=== PATIENT | female | born 1955 | race Caucasian/White ===

== ENCOUNTER 2019-10-19 09:29 | Outpatient (CLI) | payer OTHER, SELFPAY ==
--- NOTE | ~2019-10-19 | MM_ITS ---
EXAMINATION: MM screening rosa [facility]ela BI w aron HISTORY: Screening mammogram TECHNIQUE: Craniocaudal and mediolateral oblique 3-D tomosynthesis images were obtained and synthetic 2-D images were generated. CAD analysis was submitted and interpreted. COMPARISON: 10/06/2018 left diagnostic mammogram and limited left breast ultrasound 09/30/2018 bilateral digital screening mammogram 08/01/2017 diagnostic left mammogram 07/22/2017, 06/22/2016 bilateral digital screening mammogram examinations BREAST PARENCHYMAL COMPOSITION: There are scattered areas of fibroglandular density. FINDINGS: There is no evidence of suspicious mass, calcification, or architectural distortion to sugg est malignancy in either breast. There has been no suspicious interval change. IMPRESSION: 1. No mammographic evidence of malignancy. 2. Recommend routine screening mammography in one year. BI-RADS Category 1: Negative Reviewed, dictated and finalized at location A.
== END 2019-10-19 09:30 | disposition home or self-care (01) ==
LOC: ANHIMG 09:31
PROVIDERS: PCP Internal Medicine; Visit Provider Nurse Practitioner Obstetrics & Gynecology
DX: Z12.31 Encounter for screening mammogram for malignant neoplasm of breast (principal)
CPT/HCPCS: 77063; 77067

== ENCOUNTER → 2020-11-22 10:24 | Outpatient (CLI) | payer OTHER, SELFPAY ==
--- NOTE | ~2020-11-22 | MM_ITS ---
EXAMINATION: MM screening rosa isela BI w aron HISTORY: Screening mammogram TECHNIQUE: Craniocaudal and mediolateral oblique 3-D tomosynthesis images were obtained and synthetic 2-D images were generated. CAD analysis was submitted and interpreted. COMPARISON: 10/19/2019 bilateral digital screening mammogram 10/06/2018 diagnostic left mammogram and limited left breast ultrasound 09/30/2018 bilateral digital screening mammogram 08/01/2017 diagnostic left mammogram 07/22/2017, 06/22/2016 bilateral digital screening mammogram examinations BREAST PARENCHYMAL COMPOSITION: The breasts are heterogeneously dense, which may obscure small masses . FINDINGS: There is no evidence of suspicious mass, calcification, or architectural distortion to sugg est malignancy in either breast. There has been no suspicious interval change. IMPRESSION: 1. No mammographic evidence of malignancy. 2. Recommend routine screening mammography in one year. BI-RADS Category 1: Negative Reviewed, dictated and finalized at location A.
== END ==
PROVIDERS: PCP Nurse Practitioner Obstetrics & Gynecology; Visit Provider Internal Medicine
DX: Z12.31 Encounter for screening mammogram for malignant neoplasm of breast (principal)
CPT/HCPCS: 77063; 77067

== ENCOUNTER → 2021-05-11 09:52 | Outpatient (CLI) | payer OTHER, SELFPAY ==
--- NOTE | ~2021-05-11 | DEXA_ITS ---
Bone Density Report Name: DARWIN CHRISTIAN Age: 66 Sex: Female Ethnicity: White Date of : 1955 Indication: monitoring treatment; postmenopausal Referring Provider: Joelle, Carmen Leon Study: Bone densitometry was performed. Exam Date: May 11, 2021 Accession number: [id number] Bone Density: Region BMD T-score Z-score Classification AP Spine (L1-L4) 0.898 -1.4 0.4 Osteopenia Femoral Neck (Left) 0.768 -0.7 0.8 Normal Total Hip (Left) 0.881 -0.5 0.7 Normal Femoral Neck (Right) 0.784 -0.6 0.9 Normal Total Hip (Right) 0.926 -0.1 1.1 Normal Total Hip Mean 0.904 -0.3 0.9 Normal World Health Organization criteria for BMD impression classify patients as: Normal (T-score at or above -1.0), Osteopenia (T-score between -1.0 and -2.5), or Osteoporosis (T-score at or below -2.5). 10-year Fracture Risk: FRAX not reported because: Treated for osteoporosis Previous Exams: Region Exam Age BMD T-score BMD Change BMD Change Date g/cm2 vs Baseline vs Previous AP Spine(L1-L4) 05/11/2021 66 0.898 -1.4 -0.112* -0.064* 12/27/2010 55 0.963 -0.8 -0.048* -0.048* 06/27/2007 52 1.010 -0.3 Total Hip(Left) 05/11/2021 66 0.881 -0.5 -0.034* 0.031* 12/27/2010 55 0.850 -0.8 -0.064* -0.064* 06/27/2007 52 0.915 -0.2 Total Hip(Right) 05/11/2021 66 0.926 -0.1 -0.044* -0.037* 12/27/2010 55 0.963 0.2 -0.006 -0.006 06/27/2007 52 0.969 0.2 *Denotes significance at 95% confidence level, LSC for AP Spine = 0.022 g/cm2, LSC for Total Hip = 0.027 g/cm2 Clinical Information Provided by Patient: Is being treated for osteoporosis Has used the following medications: HRT (i.e. estrogen/hormone therapy), Vitamin D, Calcium Patient maximum height was 63 Menopause Age: 43 Drinks caffeinated beverages Onset of menses at age 15 Number of children 3 Impression: The patient has low bone mass, based on the Total Spine T-score. The BMD for the AP Spine(L1-L4) decreased, changing by -0.064 since the last DXA exam. The BMD for the Total Hip(Right) decreased, changing by -0.037 since the last DXA exam. Discussion: SIGNIFICANT BONE LOSS OBSERVED. Adherence to therapy (including calcium and vitamin D intake) should be assessed. If compliance is not a factor, review management and exclusion of secondary causes of bone loss. It is important to ask patients whethe
== END ==
PROVIDERS: PCP Internal Medicine; Visit Provider Nurse Practitioner Obstetrics & Gynecology
DX: Z13.820 Encounter for screening for osteoporosis (principal); M85.88 Other specified disorders of bone density and structure, other site
CPT/HCPCS: 77080

== ENCOUNTER 2021-07-27 01:04 | Day surgery (SDC) | payer OTHER, SELFPAY ==
[2021-07-18 15:33] VITALS: BMI 26.5
[2021-07-27 06:14] VITALS: BP 120/57; PULSE 76; RESP 18; TEMP 36.6; O2SAT 98
[2021-07-27] MEDS: LACTATED RINGERS 1,000 ML 150 ML IV CONT (06:42)
--- NOTE | 2021-07-27 07:15 | WPDANESEPPF ---
Anes - Initial Pre Proc Eval Procedure: Operation Date: 07/27/21 07:30 Proposed Procedures p Screening Colonoscopy - Rio Owens MD Date/Time: 07/27/21 07:15 Surgeon: Rio Owens MD Pre Op Diagnosis: neoplasm screening Patient Data Age: 66 Gender: F Height: 1.6 m Weight: 68 kg Last Vital Signs Temp 97.9 F 07/27/21 06:14 Resp 18 07/27/21 06:14 BP 120/57 L 07/27/21 06:14 Pulse Ox 76 L 07/27/21 06:14 Allergies Allergy/AdvReac Type Severity Reaction Status Date / Time latex Allergy Rash Verified 07/18/21 15:32 Sulfa (Sulfonamide Allergy Rash Verified 07/18/21 15:32 Antibiotics) Home Medications Medication Instructions Recorded Confirmed Type estradiol [Vivelle-Dot] 1 patch TRANSDERMAL 2XW 07/18/21 07/27/21 History progesterone micronized 100 mg PO DAILY 07/18/21 07/27/21 History Patient hx anesthesia problems: none Family hx anesthesia problems: none Results Review: All pre-operative results and documents have been reviewed as part of the pre-operative evaluation. [facility] Past Medical History Medical History (Updated 07/27/21 @ 07:16 by Shaka Dougherty MD) Hypoglycemia Social History Social History Smoking status: Never smoker Alcohol intake: current Drinks per week: 3 Substance use type: does not use Living arrangements: alone Spiritual care concerns: No Anes - Eval Final PreProcedure Day of Procedure 07/27/21 07:15 Patient weight: normal Heart: regular rate and rhythm Lungs: clear to auscultation Airway: Mallampati scale class II Neurological: alert and oriented Last oral intake: >/= 8 hours ASA classification: II Emergent: no Anesthetic plan: proceed Anesthesia type and monitoring: general GIVS and standard monitoring Results Review: All pre-operative results and documents have been reviewed as part of the pre-operative evaluation. Informed Consent: The patient's anesthetic plan and its attendant risks and benefits were discussed with the patient/family/POA. Questions were solicited and answers provided to the satisfaction of the patient/family/POA.
--- NOTE | 2021-07-27 07:18 | P.CONGI_ITS ---
Assessment and Plan Assessment and plan (1) Encounter for screening colonoscopy: Code(s): Z12.11 - Encounter for screening for malignant neoplasm of colon Status: Acute Assessment and Plan: Patient presents today for screening colonoscopy. She has a distant history of colon polyps. Further recommendations will be given after endoscopy regarding follow-up. GI Consult Note Consult date/time: 07/27/21 07:18 HPI: Kelsey Scruggs is a 66 year old female Presents for screening colo noscopy. Patient's current weight appetite and bowel movements are normal. She denies abdominal pain. She has had no bleeding. Family history is noncontributory. Patient's most recent colonoscopy 2012 was unremarkable. Patient presents today for neoplasia screening. Review of Systems Review of Systems: All systems reviewed & are unremarkable except as noted in HPI and below PMFSH Past Medical History Medical History (Updated 07/27/21 @ 07:19 by Rio Owens MD) Hypoglycemia Social History Social History Smoking status: Never smoker Alcohol intake: current Drinks per week: 3 Substance use type: does not use Living arrangements: alone Spiritual care concerns: No Meds Home Medications and Allergies Home Medications Medication Instructions Recorded Confirmed Type estradiol [Vivelle-Dot] 1 patch TRANSDERMAL 2XW 07/18/21 07/27/21 History progesterone micronized 100 mg PO DAILY 07/18/21 07/27/21 History Allergies Allergy/AdvReac Type Severity Reaction Status Date / Time latex Allergy Rash Verified 07/18/21 15:32 Sulfa (Sulfonamide Allergy Rash Verified 07/18/21 15:32 Antibiotics) Vital Signs Vital Signs - 24 hr 07/27/21 06:14 Temperature 97.9 F Respiratory Rate 18 Blood Pressure 120/57 L Pulse Oximetry 76 L Exam Narrative: Physical exam reveals patient to be alert. Vital signs stable. HEENT exam is unremarkable. Patient is anicteric. Lungs are clear to auscultation and percussion. Heart is without murmur or extra sounds. Abdomin al exam bowel sounds are present soft nontender with no organomegaly. Digital external rectal exam is normal.
[2021-07-27 07:52] VITALS: BP 84/38; PULSE 69; RESP 19; O2SAT 98
[2021-07-27 08:02] VITALS: BP 115/61; PULSE 68; RESP 18; O2SAT 100
[2021-07-27 08:12] VITALS: BP 109/62; PULSE 66; RESP 18; O2SAT 100
== END 2021-07-27 08:30 | disposition home or self-care (01) ==
PROVIDERS: PCP Internal Medicine; Visit Provider Internal Medicine Gastroenterology
PROC: 0DJD8ZZ Inspection of Lower Intestinal Tract, Via Natural or Artificial Opening Endoscopic (ICD-10-PCS; CPT 45378; principal; 2021-07-27 07:30)
DX: Z12.11 Encounter for screening for malignant neoplasm of colon (principal); K63.5 Polyp of colon; K64.8 Other hemorrhoids
CPT/HCPCS: 45380; 88305; J2704; J7120

== ENCOUNTER 2021-08-30 10:42 | Emergency (ER) | payer OTHER, SELFPAY ==
--- NOTE | 2021-08-30 10:45 | ED.URI ---
HPI - URI/Sore Throat General Chief Complaint: Upper Respiratory Infection Stated Complaint: sorethroat,cough,nasal congestion Time Seen by Provider: 08/30/21 10:45 Source: patient Mode of arrival: ambulatory Limitations: no limitations History of Present Illness HPI Narrative: Ms. Scruggs is a 66-year-old female patient presenting to the clinic today with complaints of sore throat, nonproductive cough, and nasal congestion x6 days. She reports she was visiting her grandkids and they were sick and she thinks that she caught this from them. Reports that her daughter also had the symptoms and had them for approximately 2 weeks. She denies any fever or chills. Reports some right ear pressure as well. MD elicited complaint: cough, sore throat and nasal congestion Related Data Home Medications Medication Instructions Recorded Confirmed estradiol [Vivelle-Dot] 1 patch TRANSDERMAL 2XW 07/18/21 08/30/21 progesterone micronized 100 mg PO DAILY 07/18/21 08/30/21 Allergies Allergy/AdvReac Type Severity Reaction Status Date / Time latex Allergy Rash Verified 08/30/21 11:07 Sulfa (Sulfonamide Allergy Rash Verified 08/30/21 11:07 Antibiotics) Review of Systems Review of Systems: Pertinent positives per HPI. Patient denies any fever, chills, rash, headache, visual changes, dizziness, shortness of breath, chest pain, palpitations, nausea, vomiting, diarrhea, constipation, abdominal pain, or any urinary issues. [facility] Past Medical History Medical History Hypoglycemia Social History Social History Smoking status: Never smoker Alcohol intake: current Drinks per week: 3 Substance use type: does not use Spiritual care concerns: No Comments At the time of my signature, I reviewed and agree with the nursing past medical, surgical, social, and family history. There is no relevant family history pertinent to the patient complaint. Exam Narrative: General: Well-developed, well nourished, in no apparent distress Head: Normocephalic, atraumatic Eyes: Pupils equally round and reactive to light bilaterally, EOM intact, sclera and conjunctive clear, no discharge, lids normal Ears: Left TM intact and clear, Right TM with mild bulging and small amount of fluid behind TM, ear canals clear, no drainage, grossly hearing normal. Nose: Nares patent, no discharge, no inflammation, no sinus tenderness. Mouth: Oral pharynx without lesions or masses, good dentition, MMM. pnd Neck: Supple, trachea midline, no enlargement of anterior or posterior cervical nodes, no thyroid masses or goiter palpable. Cardio: Regular rate and rhythm, s1 and s2 normal, no murmur appreciated. Resp: Clear to auscultation bilaterally, no rhonchi, rales, wheezing or rubs Course Course Emergency Course: Portions of this record may have been created with voice recognition software. Level of Care: Express Care Visit Vital Signs Vital signs: Vital signs reviewed MDM - URI/Sore Throat MDM Narrative Medical decision making narrative: At the time of visit patient is resting comfortably on the exam table. She is having a nonproductive cough, itchy throat, and nasal congestion. She stated to me that she does not get seasonal allergies. Lung sounds are clear. I suspect that she has an upper respiratory infection and I will send her in a prescription for some prednisone to help dry up secretions as well as some benzonatate to help suppress the nonproductive cough. Discharge instructions were discussed with patient and she voiced understanding and agrees with the treatment plan. Differential Diagnosis Differential diagnosis: Likely upper respiratory infection, croup, sinusitis, viral infection, bronchitis, influenza, pharyngitis and other (COVID) Discharge Plan Discharge Clinical Impression: Acute upper respiratory infection, PND (post-n
[2021-08-30 10:55] VITALS: BP 134/60; PULSE 68; RESP 18; TEMP 36.3; O2SAT 100
== END 2021-08-30 11:15 | disposition home or self-care (01) ==
PROVIDERS: Emergency Provider Nurse Practitioner Family; PCP Internal Medicine
DX: J06.9 Acute upper respiratory infection, unspecified (principal); R09.82 Postnasal drip; H69.80 Other specified disorders of Eustachian tube, unspecified ear
CPT/HCPCS: 99213; G0463

== ENCOUNTER → 2022-02-06 10:39 | Outpatient (CLI) | payer OTHER, SELFPAY ==
--- NOTE | ~2022-02-06 | MM_ITS ---
EXAMINATION: MM screening rosa isela BI w aron HISTORY: Screening TECHNIQUE: Craniocaudal and mediolateral oblique 3-D tomosynthesis images were obtained and synthetic 2-D images were generated. CAD analysis was submitted and interpreted. COMPARISON: Comparison to multiple prior studies sequentially, with oldest reviewed study dated 07/22. BREAST PARENCHYMAL COMPOSITION: The breasts are extremely dense, which lowers the sensitivity of mamm ography FINDINGS: There are developing asymmetries in the left breast on CC view medially and laterally. Thes e are not confirmed on MLO view. The right breast is stable without evidence for malignancy. IMPRESSION: 1. Developing left breast asymmetries. 2. Additional mammographic views and possible breast ultrasound are recommended. BI-RADS Category 0: Incomplete: Needs additional imaging evaluation. Reviewed, dictated and finalized at location A. IMPRESSION: 1. Developing left breast asymmetries. 2. Additional mammographic views and possible breast ultrasound are recommended . BI-RADS Category 0: Incomplete: Needs additional imaging evaluation.
== END ==
PROVIDERS: PCP Nurse Practitioner Obstetrics & Gynecology; Visit Provider Internal Medicine
DX: Z12.31 Encounter for screening mammogram for malignant neoplasm of breast (principal); R92.8 Other abnormal and inconclusive findings on diagnostic imaging of breast
CPT/HCPCS: 77063; 77067

== ENCOUNTER → 2022-02-21 08:31 | Outpatient (CLI) | payer OTHER, SELFPAY ==
--- NOTE | ~2022-02-21 | MMUS_ITS ---
EXAMINATION: MM diagnostic rosa isela LT w aron, US breast LT limited HISTORY: Left breast asymmetries on screening mammogram TECHNIQUE: Additional 3-D tomosynthesis images of the left breast were performed and synthetic 2-D im ages were generated. CAD analysis was submitted and interpreted. High resolution limited left breast ultrasound was performed. COMPARISON: 02/06/2022, 11/22/2020, 10/19/2019 FINDINGS: MAMMOGRAPHIC FINDINGS: There is a return to baseline fibroglandular appearance with spot compression of the left breast in t he areas questioned on screening mammogram. ULTRASOUND: There is no evidence of focal abnormal solid or cystic mass in the vicinity of the mammographic findi ngs in question. A 4 mm cyst is noted at the 7:00 location 4 cm from the nipple. IMPRESSION: 1. No mammographic or sonographic evidence of malignancy. 2. Recommend routine screening mammography in one year. BI-RADS Category 2: Benign finding(s). Reviewed, dictated and finalized at location A. IMPRESSION: 1. No mammographic or sonographic evidence of malignancy. 2. Recommend routine screening mammography in one year. BI-RADS Category 2: Benign finding(s).
== END ==
PROVIDERS: PCP Internal Medicine; Visit Provider Nurse Practitioner Obstetrics & Gynecology
DX: R92.8 Other abnormal and inconclusive findings on diagnostic imaging of breast (principal)
CPT/HCPCS: 76642; 77061; 77065; G0279

== ENCOUNTER → 2023-05-08 15:05 | Outpatient (CLI) | payer OTHER, SELFPAY ==
--- NOTE | ~2023-05-08 | MM_ITS ---
EXAMINATION: MM screening [facility] BI w aron HISTORY: Screening mammogram TECHNIQUE: Craniocaudal and mediolateral oblique 3-D tomosynthesis images were obtained and synthetic 2-D images were generated. CAD analysis was submitted and interpreted. COMPARISON: 02/21/2022, 02/06/2022, 11/22/2020, 10/19/2019 BREAST PARENCHYMAL COMPOSITION: The breasts are heterogeneously dense, which may obscure small masses . FINDINGS: No suspicious mass, calcification, or architectural distortion are identified in either angelina ast to suggest malignancy. There has been no suspicious interval change. IMPRESSION: 1. No mammographic evidence of malignancy. 2. Recommend routine screening mammography in one year. BI-RADS Category 1: Negative Reviewed, dictated and finalized at location A. 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
== END ==
PROVIDERS: PCP Nurse Practitioner Obstetrics & Gynecology; Visit Provider Nurse Practitioner Obstetrics & Gynecology
DX: Z12.31 Encounter for screening mammogram for malignant neoplasm of breast (principal)
CPT/HCPCS: 77063; 77067

== ENCOUNTER 2024-04-06 14:08 | Outpatient (CLI) | payer OTHER, SELFPAY ==
--- NOTE | ~2024-04-06 | MR_ITS ---
MRI of the left knee Clinical history: Pain Technique: Coronal proton density and proton density-weighted images, sagittal proton-density and T2 fat-sat images, and axial proton-density fat-saturated images were acquired. Findings: Anterior and posterior cruciate ligaments are intact. Medial collateral ligament and the la teral collateral ligament complex are intact. Popliteus tendon is intact. Suspected undersurface flap tear of the body segment of the medial meniscus. No lateral meniscal tear seen. Articular cartilage demonstrates mild to moderate thinning at the medial joint line region. There is mild chondral thinning in the lateral compartment. Bone marrow signals are unremarkable. Extensor mechanism is intact. Minimal joint effusion present. No significant Cantu's cyst. Impression: Suspected subtle flap tear of the undersurface of the body segment of the medial meniscus. Chondromalacia the medial and lateral compartment, as detailed above. Reviewed, dictated and finalized at location . 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 Chondromalacia the medial and lateral compartment, as detailed above.
== END 2024-04-06 14:09 | disposition home or self-care (01) ==
PROVIDERS: PCP Nurse Practitioner Family; Visit Provider Nurse Practitioner Family
DX: M25.562 Pain in left knee (principal)
CPT/HCPCS: 73721

== ENCOUNTER 2024-06-05 10:06 | Outpatient (CLI) | payer OTHER, SELFPAY ==
--- NOTE | ~2024-06-05 | MM_ITS ---
EXAMINATION: MM screening rosa isela BI w aron HISTORY: Screening mammogram TECHNIQUE: Craniocaudal and mediolateral oblique 3-D tomosynthesis images were obtained and synthetic 2-D images were generated. CAD analysis was submitted and interpreted. COMPARISON: 05/08/2023, 02/06/2022 BREAST PARENCHYMAL COMPOSITION:Dense: The breasts are heterogeneously dense, which may obscure small masses. FINDINGS: No suspicious mass, calcification, or architectural distortion are identified in either angelina ast to suggest malignancy. There has been no suspicious interval change. IMPRESSION: No mammographic evidence of malignancy. Recommend routine screening mammography in one year. BI-RADS Category 1: Negative Reviewed, dictated and finalized at location . 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
== END 2024-06-05 10:07 | disposition home or self-care (01) ==
LOC: MICIMG 10:09
PROVIDERS: PCP Obstetrics & Gynecology; Visit Provider Nurse Practitioner Family
DX: Z12.31 Encounter for screening mammogram for malignant neoplasm of breast (principal)
CPT/HCPCS: 77063; 77067